=== PATIENT | male | born 1980 | race Caucasian/White ===

== ENCOUNTER 2017-03-05 19:46 | Emergency (ER) | payer OTHER ==
--- NOTE | 2017-03-05 20:35 | ED NURSING NOTES ---
Clinical Report - Nurses [facility] [address] [place] [address] 03/05/2017 19:48 Patient: NONA CAMPBELL TRIAGE Triage time 19:54. Acuity: LEVEL 4. Chief Complaint: RIGHT LOWER EXTREMITY PAIN, SWELLING and REDNESS. Location of symptoms- (hx of gout). --20:04 Alma Teague R.N. 19:54 03/05/17. BP: 154/88. HR: 70. RR: 18. O2 saturation: 99%. Temp: 98.1 F. Pain level now: 04/25. --20:04 Alma Teague R.N. Weight: 97.5 kg stated. Height/Length: 70 inches Per Patient. BMI: 30.8. --19:54 Alma Teague R.N. Medications Colchicine Oral (Tablet 0.6 mg) 1 tablet, daily. --19:58 Alma Teague R.N. Allergies No Known Drug Allergy. --19:58 Alma Teague R.N. History Arrived by private vehicle. Historian: patient. Primary physician (hoang dahl). No injury occurred. This occurred (2 days ago). ( ate red meat Tuesday night, pizza ). He has had trouble walking. The patient has been limping when trying to walk. PAST MEDICAL HX: Tetanus status: up-to-date. Immunizations: up-to-date. SOCIAL HX: Smoker- current status unknown. Alcohol use. (in 2011). No drug use. He has not traveled outside the [place] ABUSE ASSESSMENT: No report of abuse. SELF HARM ASSESSMENT: A self harm assessment was performed. The patient answered "no" to the question "Have you recently felt down, depressed, or hopeless?", "Have you noticed less interest or pleasure in doing things?", "Do you have thoughts of harming or killing yourself?", "Are you here because you tried to hurt yourself?", "Have you ever tried to hurt yourself before today?", "Have you recently had thoughts about harming or killing others?" and "Do you have any dangerous items in your possession?". --20:04 Alma Teague R.N. Unaccompanied. --20:05 Alma Teague R.N. PROBLEMS: Gout. --19:59 Alma Teague R.N. ADDITIONAL SURGERIES: Hip resurface. --19:59 Alma Teague R.N. Hernia Repair. --19:59 Alma Teague R.N. Interventions ID band on patient. --20:04 Alma Teague R.N. PHYSICAL ASSESSMENT Ambulatory to room. GENERAL / NEURO / PSYCH: Oriented X 4. EXTREMITIES: Erythema on the extremities. Extremity pulses are within normal limits. Neuro-vascular status intact to the extremity. Right foot: tenderness, swelling and erythema. Limited weight bearing secondary to pain. SKIN: Skin intact. Skin is warm and dry. --20:04 Alma Teague R.N. NURSING PROGRESS NOTES Two patient identifiers checked. Call light placed in reach. Side rails up x 1. Bed placed in lowest position. Brakes of bed on. --20:05 Alma Teague R.N. Patient ready for evaluation- chart flagged. --20:05 Alma Teague R.N. DISPOSITION / DISCHARGE 20:40 03/05/17. No learning barriers present. Discharge instructions provided and reviewed with the patient. Reviewed warnings. Reviewed medication(s). Treatments reviewed. Reviewed referrals. Activity restrictions reviewed. Work note given. Patient verbalized understanding. Written instructions provided in Danish. The patient was discharged home. He left the Emergency Department ambulatory and via private vehicle. Patient driving. --20:40 Yessenia Reaves R.N. 19:54 03/05/17. BP: 154/88. HR: 70. RR: 18. O2 saturation: 99%. Temp: 98.1 F. Pain level now: 04/25. --20:40 Yessenia Reaves R.N. Locked/Released at 03/06/2017 6:07 by Alma Teague R.N.
--- NOTE | 2017-03-05 20:35 | ED CLINICAL REPORT ---
Clinical Report - Physicians/Mid Levels [facility] [address] [place] [place] [address] 03/05/2017 19:48 Patient: NONA CAMPBELL Time Seen: 20:01; initial patient contact. Arrived- By private vehicle. Historian- patient. HISTORY OF PRESENT ILLNESS Chief Complaint: LOWER EXTREMITY PAIN. Severity is described as being moderate. The quality is noted to be aching and "pain". Modifying factors- worsened by walking. This started today and is still present. Symptoms located in the area of the right foot. The patient has had redness and swelling. He has had difficulty walking. Patient denies an injury. Similar symptoms previously: Several times. Recent medical care: Not recently seen/assessed. REVIEW OF SYSTEMS No cough or difficulty breathing. All systems otherwise negative, except as recorded above. PAST HISTORY See nurses notes. Problems: Gout. Medications: Colchicine Oral (Tablet 0.6 mg) 1 tablet, daily. Allergies: No Known Drug Allergy. SOCIAL HISTORY Never smoker. No alcohol use or drug use. FAMILY HISTORY Negative. ADDITIONAL NOTES The nursing notes have been reviewed with agreement regarding the chief complaint, HPI, ROS, PMH and patient medications and allergies. PHYSICAL EXAM Vital Signs: 03/05/2017 19:54 BP: 154/88. HR: 70. RR: 18. O2 saturation: 99%. Temp: 98.1 F. Pain level now: 7/10. Have been reviewed. Appearance: Alert. Oriented X3. No acute distress. Extremities: Right foot: erythema, tenderness and swelling located in the medial aspect of the foot and first toe(s). Lower extremities exhibit normal ROM. No lower extremity edema. Extremities otherwise negative. Gait: Limping gait. (due to toe pain). CLINICAL IMPRESSION Acute idiopathic gout with monarthritis involving the right great toe. No tophus. INSTRUCTIONS Elevate affected areas above chest level. You may walk and bear weight as tolerated. Rest. (may consider avoiding fructose.). Warnings: Further evaluation is necessary. It is very important to follow up with a physician. GENERAL WARNINGS: Return or contact your physician immediately if your condition worsens or changes unexpectedly, if not improving as expected, or if other problems arise. Your Current Medications: CONTINUE TAKING THE FOLLOWING MEDICATIONS: Colchicine Oral : Tablet 0.6 mg, 1 tablet daily. Prescription Medications: Hydrocodone/APAP 5mg / 325mg: take 1 orally every 6 hours as needed for pain. Dispense ten (10). No refill. Indocin 25 mg capsules: take 1 capsule every 8 hours as needed for pain, swelling or stiffness. Dispense thirty (30). No refill. Substitution is permissible. Colchicine 0.6 mg tablets: take 1-2 tablets orally every 1-2 hours as needed for pain. Do not take more than 4 mg in one day. Dispense thirty (30). No refills. Follow-up: Follow up with your doctor in one week if not better. Reason for referral: gout. Understanding of the discharge instructions verbalized by patient. (Electronically signed by Reyna Muñiz PA-C 03/05/2017 22:27)
--- NOTE | 2017-03-05 20:35 | ED CLINICAL REPORT ---
Clinical Report - Physicians/Mid Levels [facility] [address] [place] [address] 03/05/2017 19:48 Patient: NONA CAMPBELL Time Seen: 20:01; initial patient contact. Arrived- By private vehicle. Historian- patient. HISTORY OF PRESENT ILLNESS Chief Complaint: LOWER EXTREMITY PAIN. Severity is described as being moderate. The quality is noted to be aching and "pain". Modifying factors- worsened by walking. This started today and is still present. Symptoms located in the area of the right foot. The patient has had redness and swelling. He has had difficulty walking. Patient denies an injury. Similar symptoms previously: Several times. Recent medical care: Not recently seen/assessed. REVIEW OF SYSTEMS No cough or difficulty breathing. All systems otherwise negative, except as recorded above. PAST HISTORY See nurses notes. Problems: Gout. Medications: Colchicine Oral (Tablet 0.6 mg) 1 tablet, daily. Allergies: No Known Drug Allergy. SOCIAL HISTORY Never smoker. No alcohol use or drug use. FAMILY HISTORY Negative. ADDITIONAL NOTES The nursing notes have been reviewed with agreement regarding the chief complaint, HPI, ROS, PMH and patient medications and allergies. PHYSICAL EXAM Vital Signs: 03/05/2017 19:54 BP: 154/88. HR: 70. RR: 18. O2 saturation: 99%. Temp: 98.1 F. Pain level now: 7/10. Have been reviewed. Appearance: Alert. Oriented X3. No acute distress. Extremities: Right foot: erythema, tenderness and swelling located in the medial aspect of the foot and first toe(s). Lower extremities exhibit normal ROM. No lower extremity edema. Extremities otherwise negative. Gait: Limping gait. (due to toe pain). CLINICAL IMPRESSION Acute idiopathic gout with monarthritis involving the right great toe. No tophus. INSTRUCTIONS Elevate affected areas above chest level. You may walk and bear weight as tolerated. Rest. (may consider avoiding fructose.). Warnings: Further evaluation is necessary. It is very important to follow up with a physician. GENERAL WARNINGS: Return or contact your physician immediately if your condition worsens or changes unexpectedly, if not improving as expected, or if other problems arise. Your Current Medications: CONTINUE TAKING THE FOLLOWING MEDICATIONS: Colchicine Oral : Tablet 0.6 mg, 1 tablet daily. Prescription Medications: Hydrocodone/APAP 5mg / 325mg: take 1 orally every 6 hours as needed for pain. Dispense ten (10). No refill. Indocin 25 mg capsules: take 1 capsule every 8 hours as needed for pain, swelling or stiffness. Dispense thirty (30). No refill. Substitution is permissible. Colchicine 0.6 mg tablets: take 1-2 tablets orally every 1-2 hours as needed for pain. Do not take more than 4 mg in one day. Dispense thirty (30). No refills. Follow-up: Follow up with your doctor in one week if not better. Reason for referral: gout. Understanding of the discharge instructions verbalized by patient. (Electronically signed by Reyna Muñiz PA-C 03/05/2017 22:27)
--- NOTE | 2017-03-05 20:35 | ED NURSING NOTES ---
Clinical Report - Nurses [place] [address] [place] [address] 03/05/2017 19:48 Patient: NONA CAMPBELL TRIAGE Triage time 19:54. Acuity: LEVEL 4. Chief Complaint: RIGHT LOWER EXTREMITY PAIN, SWELLING and REDNESS. Location of symptoms- (hx of gout). --20:04 Alma Teague R.N. 19:54 03/05/17. BP: 154/88. HR: 70. RR: 18. O2 saturation: 99%. Temp: 98.1 F. Pain level now: 04/25. --20:04 Alma Teague R.N. Weight: 97.5 kg stated. Height/Length: 70 inches Per Patient. BMI: 30.8. --19:54 Alma Teague R.N. Medications Colchicine Oral (Tablet 0.6 mg) 1 tablet, daily. --19:58 Alma Teague R.N. Allergies No Known Drug Allergy. --19:58 Alma Teague R.N. History Arrived by private vehicle. Historian: patient. Primary physician (hoang dahl). No injury occurred. This occurred (2 days ago). ( ate red meat Tuesday night, pizza ). He has had trouble walking. The patient has been limping when trying to walk. PAST MEDICAL HX: Tetanus status: up-to-date. Immunizations: up-to-date. SOCIAL HX: Smoker- current status unknown. Alcohol use. (in 2011). No drug use. He has not traveled outside the [place] ABUSE ASSESSMENT: No report of abuse. SELF HARM ASSESSMENT: A self harm assessment was performed. The patient answered "no" to the question "Have you recently felt down, depressed, or hopeless?", "Have you noticed less interest or pleasure in doing things?", "Do you have thoughts of harming or killing yourself?", "Are you here because you tried to hurt yourself?", "Have you ever tried to hurt yourself before today?", "Have you recently had thoughts about harming or killing others?" and "Do you have any dangerous items in your possession?". --20:04 Alma Teague R.N. Unaccompanied. --20:05 Alma Teague R.N. PROBLEMS: Gout. --19:59 Alma Teague R.N. ADDITIONAL SURGERIES: Hip resurface. --19:59 Alma Teague R.N. Hernia Repair. --19:59 Alma Teague R.N. Interventions ID band on patient. --20:04 Alma Teague R.N. PHYSICAL ASSESSMENT Ambulatory to room. GENERAL / NEURO / PSYCH: Oriented X 4. EXTREMITIES: Erythema on the extremities. Extremity pulses are within normal limits. Neuro-vascular status intact to the extremity. Right foot: tenderness, swelling and erythema. Limited weight bearing secondary to pain. SKIN: Skin intact. Skin is warm and dry. --20:04 Alma Teague R.N. NURSING PROGRESS NOTES Two patient identifiers checked. Call light placed in reach. Side rails up x 1. Bed placed in lowest position. Brakes of bed on. --20:05 Alma Teague R.N. Patient ready for evaluation- chart flagged. --20:05 lAma Teague R.N. DISPOSITION / DISCHARGE 20:40 03/05/17. No learning barriers present. Discharge instructions provided and reviewed with the patient. Reviewed warnings. Reviewed medication(s). Treatments reviewed. Reviewed referrals. Activity restrictions reviewed. Work note given. Patient verbalized understanding. Written instructions provided in Syriac. The patient was discharged home. He left the Emergency Department ambulatory and via private vehicle. Patient driving. --20:40 Yessenia Reaves R.N. 19:54 03/05/17. BP: 154/88. HR: 70. RR: 18. O2 saturation: 99%. Temp: 98.1 F. Pain level now: 04/25. --20:40 Yessenia Reaves R.N. Locked/Released at 03/06/2017 6:07 by Alma Teague R.N.
--- NOTE | 2017-03-06 06:07 | ED DISCHARGE INSTRUCTIONS ---
Patient: NONA CAMPBELL General Instructions [facility] VisitID: [id number] [place] [address] 37y, M Registration Date/Time: 03/05/2017 Acute idiopathic gout with monarthritis involving the right great toe. No tophus. INSTRUCTIONS Elevate affected areas above chest level. You may walk and bear weight as tolerated. Rest. (may consider avoiding fructose.). Warnings: Further evaluation is necessary. It is very important to follow up with a physician. GENERAL WARNINGS: Return or contact your physician immediately if your condition worsens or changes unexpectedly, if not improving as expected, or if other problems arise. Your Current Medications: CONTINUE TAKING THE FOLLOWING MEDICATIONS: Colchicine Oral : Tablet 0.6 mg, 1 tablet daily. Prescription Medications: Hydrocodone/APAP 5mg / 325mg: take 1 orally every 6 hours as needed for pain. Dispense ten (10). No refill. Indocin 25 mg capsules: take 1 capsule every 8 hours as needed for pain, swelling or stiffness. Dispense thirty (30). No refill. Substitution is permissible. Colchicine 0.6 mg tablets: take 1-2 tablets orally every 1-2 hours as needed for pain. Do not take more than 4 mg in one day. Dispense thirty (30). No refills. Follow-up: Follow up with your doctor in one week if not better. Reason for referral: gout. Understanding of the discharge instructions verbalized by patient. ADDITIONAL INFORMATION Gout Gout or "gouty arthritis" is an inflammation of a joint due to a build-up of gout crystals in the joint fluid. This occurs when there is an excess uric acid (a normal waste product) in the body. Uric acid builds up in the body when the kidneys are unable to filter enough of it from the blood. This may occur with aging or kidney disease. Gout occurs more often in persons with obesity, diabetes, hypertension, high fats in the blood. It may be present in other family members. Alcohol and certain foods (such as shellfish and alcohol) may increase uric acid levels in the blood and cause a gout attack. Gout causes a hot, red, swollen and painful joint. If you have had one episode of gout, you are likely to have another. An acute attack of gout can be treated with anti-inflammatory and other medicine. If these attacks become frequent it may be necessary to take a daily medicine to help the kidney remove uric acid from the body. Home Care: Apply an ice pack (ice cubes in a plastic bag, wrapped in a towel) over the injured area for 20 minutes every 1-2 hours the first day for pain relief. Continue this 3-4 times a day until the pain and swelling goes away. Avoid alcohol and foods listed below (see Prevention) during a gout attack. Drink extra fluid to help flush the uric acid through your kidneys. Rest painful joints. If gout affects the joints of your foot or leg, you may want to use crutches for the first few days to keep from bearing weight on the foot or leg. Take anti-inflammatory medicine as directed. You may be prescribed Indocin (indomethacin), or [id number] drugs such as ibuprofen (Motrin, Advil) or naproxen (Naprosyn or Aleve). Tylenol will not be as effective since it is not an anti-inflammatory drug. If narcotic pain medicines have been prescribed, they should be used in addition to the anti-inflammatory drugs and only for severe pain. Avoid aspirin since this may slow down the flushing of the uric acid through your kidneys. Preventing Future Attacks: Minimize or avoid alcohol use. Excess alcohol intake can cause a gout attack. Foods high in purine form uric acid in the body and increase your risk for a gout attack. Therefore, avoid the following foods: certain seafoods (anchovies, sardines, shrimp, scallops, bro, mackerel); wild game, meat extracts and meat gravies; organ foods (kidney, liver, calf brain, sweetbreads). Avoid drinks with fructose (a type of sugar). Limit the following foods to one serving a day: red meat and pork, fish, poultry, dried beans and peas, asparagus, mushrooms, cauliflower and spinach. If you are overweight, this is a risk factor and you should talk to your doctor about a weight reduction plan. However, avoid fasting or extreme low calorie diets (less than 900 pablito/day) which will increase uric acid levels in the body. If you are diabetic or have high blood pressure, work with your doctor to achieve control of these conditions. Avoid injury to the involved joint since this can lead to a gout attack. Colchicine can be effective in stopping a gout attack. If you were given a prescription of this medicine for future use, begin it at the first sign of an attack. Colchicine may cause nausea, vomiting, diarrhea and other side effects. Follow Up with your doctor as advised or if you are not improving after three days of treatment. Get Prompt Medical Attention if any of the following occur: Fever over 100.4F (38.0C) with worsening joint pain Increasing redness around the joint Pain developing in another joint Repeated vomiting, abdominal pain, or blood in the vomit or stool (black or red color) You have been given the following additional information: Gouty Arthritis You may walk and bear weight as tolerated. Rest. (Electronically signed by Reyna Muñiz PA-C 03/05/2017 22:27)
--- NOTE | 2017-03-06 06:07 | ED MAR SUMMARY ---
..... Medication Administration Record [facility] [address] [place], [place] [id number] Patient: NONA CAMPBELL Visit ID: [id number] 37y, M Weight: 97.5 kg Height/Length: 70 in BMI: 30.8 ALLERGIES: No Known Drug Allergy
--- NOTE | 2017-03-06 06:07 | ED MED RECONCILIATION SUMMARY ---
Patient: NONA CAMPBELL Medication Reconciliation Report [facility] VisitID: [id number] [address] [place] [address] 37y, M Registration Date/Time: 03/05/2017 Weight: 97.5 kg Height/Length: 70 in. BMI: 30.8 ALLERGIES: No Known Drug Allergy The patient's Home Medications are listed below: CONTINUE TAKING THE FOLLOWING MEDICATIONS: Colchicine Oral (0.6 mg) 1 tablet, daily The source(s) of the original Home Medication information: Not obtained. The following Medications were given to the patient in the Emergency Department: None. The following Medications were prescribed to the patient: Hydrocodone/APAP 5mg / 325mg: take 1 orally every 6 hours as needed for pain. Dispense ten (10). No refill. -- Reyna Muñiz PA-C Indocin 25 mg capsules: take 1 capsule every 8 hours as needed for pain, swelling or stiffness. Dispense thirty (30). No refill. Substitution is permissible. -- Reyna Muñiz PA-C Colchicine 0.6 mg tablets: take 1-2 tablets orally every 1-2 hours as needed for pain. Do not take more than 4 mg in one day. Dispense thirty (30). No refills. -- Reyna Muñiz PA-C
--- NOTE | 2017-03-06 06:07 | ED MAR SUMMARY ---
..... Medication Administration Record [facility] [address] [place], [place] [id number] Patient: NONA CAMPBELL Visit ID: [id number] 37y, M Weight: 97.5 kg Height/Length: 70 in BMI: 30.8 ALLERGIES: No Known Drug Allergy
--- NOTE | 2017-03-06 06:07 | ED MED RECONCILIATION SUMMARY ---
Patient: NONA CAMPBELL Medication Reconciliation Report [facility] VisitID: [id number] [address] [place] [address] 37y, M Registration Date/Time: 03/05/2017 Weight: 97.5 kg Height/Length: 70 in. BMI: 30.8 ALLERGIES: No Known Drug Allergy The patient's Home Medications are listed below: CONTINUE TAKING THE FOLLOWING MEDICATIONS: Colchicine Oral (0.6 mg) 1 tablet, daily The source(s) of the original Home Medication information: Not obtained. The following Medications were given to the patient in the Emergency Department: None. The following Medications were prescribed to the patient: Hydrocodone/APAP 5mg / 325mg: take 1 orally every 6 hours as needed for pain. Dispense ten (10). No refill. -- Reyna Muñiz PA-C Indocin 25 mg capsules: take 1 capsule every 8 hours as needed for pain, swelling or stiffness. Dispense thirty (30). No refill. Substitution is permissible. -- Reyna Muñiz PA-C Colchicine 0.6 mg tablets: take 1-2 tablets orally every 1-2 hours as needed for pain. Do not take more than 4 mg in one day. Dispense thirty (30). No refills. -- Reyna Muñiz PA-C
== END 2017-03-05 20:40 | disposition home or self-care (01) ==
LOC: ED SRH 19:46
DX: M10.071 Idiopathic gout, right ankle and foot (principal); M13.171 Monoarthritis, not elsewhere classified, right ankle and foot; Z79.899 Other long term (current) drug therapy